=== PATIENT | male | born 1955 | race Caucasian/White ===

== ENCOUNTER 2018-09-23 20:29 | Emergency (ER) | payer BC, OTHER ==
[2018-09-23] MEDS ORDERED: KEFLEX 500 MG PO ONE (21:28)
[2018-09-23] MEDS ORDERED: NORCO 5/325 MG PO ONE (21:28)
[2018-09-23] MEDS ORDERED: Adacel Vial IM ONE ×3 (21:28→21:48)
--- NOTE | 2018-09-23 21:39 | ERPHSYRPT ---
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 tetanus not utd Timing/Duration: today Quality: painful Severity: mild Location: hands (left hand) Possible Causes: other (fish hook barbs in left hand digits 2 and 3) Associated Symptoms: denies symptoms Allergies/Adverse Reactions: oxytetracycline [From Terramycin] Allergy (Verified 12/26/14 15:42) oxytetracycline HCl [From Terramycin] Allergy (Verified 12/26/14 15:42) Home Medications: Amlodipine Besylate 5 mg [Norvasc 5 mg] 5 mg PO HS 12/26/14 [History] Lisinopril/Hctz 20/12.5 mg [Lisinopril/ Hctz 20/12.5] 20 mg PO DAILY 12/26/14 [ History] Hx Tetanus, Diphtheria Vaccination/Date Given: No Hx Influenza Vaccination/Date Given: No - Review of Systems Constitutional: No Symptoms Eyes: No Symptoms Ears, Nose, & Throat: No Symptoms Respiratory: No Symptoms Cardiac: No Symptoms Abdominal/Gastrointestinal: No Symptoms Genitourinary Symptoms: No Symptoms Musculoskeletal: No Symptoms Neurological: No Symptoms Psychological: No Symptoms Endocrine: No Symptoms Hematologic/Lymphatic: No Symptoms Immunological/Allergic: No Symptoms All Other Systems: Reviewed and Negative - Past Medical History Pertinent Past Medical History: Yes Neurological History: TIA ENT History: No Pertinent History Cardiac History: Hypertension Respiratory History: No Pertinent History Endocrine Medical History: No Pertinent History Musculoskeletal History: Fractures GI Medical History: Other Psycho-Social History: No Pertinent History Male Reproductive Disorders: No Pertinent History Other Medical History: colon blockage - Past Surgical History Past Surgical History: Yes Neuro Surgical History: No Pertinent History Cardiac: No Pertinent History Respiratory: No Pertinent History Gastrointestinal: Appendectomy Genitourinary: No Pertinent History Musculoskeletal: Orthopedic Surgery Male Surgical History: No Pertinent History Other Surgical History: LEFT WRIST - Social History Smoking Status: Current every day smoker How long have you smoked: 45 years Exposure to second hand smoke: Yes Drug Use: marijuana Patient Lives Alone: No - Nursing Vital Signs Nursing Vital Signs: Initial Vital Signs Temperature 98 F 09/23/18 21:06 Pulse Rate 84 09/23/18 21:06 Respiratory Rate 20 09/23/18 21:06 Blood Pressure 167/92 09/23/18 21:06 O2 Sat by Pulse Oximetry 98 09/23/18 21:06 Pain Scale Pain Intensity 5 - Physical Exam General Appearance: mild distress, alert, anxiety Eye Exam: PERRL/EOMI, eyes nml inspection Ears, Nose, Throat Exam: normal ENT inspection, moist mucous membranes Neck Exam: normal inspection, non-tender, supple, full range of motion Respiratory Exam: normal breath sounds, lungs clear, airway intact, No chest tenderness, No respiratory distress Gastrointestinal/Abdomen Exam: No tenderness Rectal Exam: not done Back Exam: normal inspection, normal range of motion, No CVA tenderness, No vertebral tenderness Extremity Exam: normal range of motion, pelvis stable Neurologic Exam: alert, oriented x 3, cooperative, 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 nl tendon function) Lymphatic Exam: No adenopathy SpO2 Interpretation: normal SpO2: 98 O2 Delivery: Room Air Procedures - Additional Procedures Progress: fb removal-area prepped with hibiclens and saline. area anesthetized with a total of 3ml of 1% lidocaine plain. wire cutters cut away fish hook and hooks pushed through skin. pt anny well. no complications Ordered Tests: Medication Summary Discontinued Medications Generic Name Dose Route Start Last Admin Trade Name Leo PRN Reason Stop Dose Admin Hydrocodone Bitart/Acetaminophen 1 tab 09/23/18 21:28 [place] 5/325 Mg PO 09/23/18 21:29 STAT ONE Hydrocodone Bitart/Acetaminophen Confirm 09/23/18 21:40 [place] 5/325 Mg Administered 09/23/18 21:41 Dose 1 tab .ROUTE .STK-MED ONE Cephalexin HCl 500 mg 09/23/18 21:28 Keflex 500 Mg PO 09/23/18 21:29 STAT ONE Cephalexin HCl Confirm 09/23/18 21:40 Keflex 500 Mg Administered 09/23/18 21:41 Dose 500 mg .ROUTE .STK-MED ONE Diphtheria/Tetanus/Acell Pertussis 0.5 ml 09/23/18 21:28 Adacel Vial IM 09/23/18 21:29 .ONCE ONE Diphtheria/Tetanus/Acell Pertussis Confirm 09/23/18 21:41 Adacel Vial Administered 09/23/18 21:42 Dose 0.5 ml IM .STK-MED ONE - Progress Progress: improved Counseled pt/family regarding: diagnosis, need for follow-up, rad results - Departure Departure Disposition: Home Clinical Impression: Fish hook injury of finger of left hand Condition: Stable Critical Care Time: No Referrals: ABY MARQUEZ, SECURITY SERVICES MANAGER [Primary Care Provider] - Additional Instructions: keep areas clean with soap and water. may soak in epsom salts. no ointments lotions or creams. my apply ice to area 3 times daily for pain control. follow up with primary doctor for further management. Prescriptions: Hydrocodone/APAP 5/325 [[place] 5/325 mg] 1 each PO Q8H PRN PRN #6 tablet MDD 4 PRN Reason: Pain Cephalexin Mh 500 mg [Keflex 500 mg] 500 mg PO TID #21 capsule
[2018-09-23] MEDS ORDERED: KEFLEX 500 MG ONE (21:40)
[2018-09-23] MEDS ORDERED: NORCO 5/325 MG ONE (21:40)
[2018-09-23] MEDS ORDERED: XYLOCAINE 1% HCL 20 ML MDV ONE (22:00)
[2018-09-23 22:15] VITALS: BP 178/82; PULSE 82; O2SAT 95
== END 2018-09-23 22:25 | disposition home or self-care (01) ==
LOC: ED 20:29
DX: S60.455A Superficial foreign body of left ring finger, initial encounter (principal); W45.8XXA Other foreign body or object entering through skin, initial encounter; W22.8XXA Striking against or struck by other objects, initial encounter; Y93.89 Activity, other specified
CPT/HCPCS: 90471; 90715; 99283; A9270-GY

== ENCOUNTER 2021-07-19 19:56 | Emergency (ER) | payer OTHER ==
[2021-07-19] MEDS ORDERED: MORPHINE SULFATE 4 MG INJ IV ONE ×2 (20:46→21:20)
[2021-07-19] MEDS ORDERED: Zofran 4 MG/2 ML VIAL IV ONE (20:46)
[2021-07-19 20:48] LABS: Absolute Neutrophil Ct (ANC) 5.97 (1.4-6.9); Basophil (Absolute #) 0.05 (0-0.4); Eosinophil % 2.1 % (0.00-5.0); Eosinophil (Absolute #) 0.19 (0-0.5); Hematocrit 43.5 % (42-50); Hemoglobin 14.8 gm/dl (12.5-18.0); Lymphocyte (Absolute #) 2.42 (1.0-4.6); Lymphocytes % 26.1 % (24.0-44.0); Mean Cell Volume 92.9 fl (78-100); Mean Corpuscular Hemoglobin 31.6 pg (26-32); Mean Platelet Volume 10.4 fl (7.5-11.0); Monocyte (Absolute #) 0.63 (0.0-1.3); Monocytes % 6.8 % (0.0-12.0); Neutrophil % 64.5 % (36.0-66.0); Platelet Count 259 K/mm3 (150-450); Red Blood Count 4.68 M/mm3 (4.1-5.6); Red Cell Distribution Width 13.5 % (11.5-14.0); White Blood Count 9.3 K/mm3 (4.0-10.5)
[2021-07-19] MEDS ORDERED: MORPHINE SULFATE 4 MG INJ ONE ×2 (20:50→21:25)
[2021-07-19] MEDS ORDERED: Zofran 4 MG/2 ML VIAL ONE (20:50)
[2021-07-19 20:52] LABS: INR 0.97 (0.8-3.0); PROTIME 11.5 SECONDS (9.4-12.5)
[2021-07-19 20:55] LABS: PTT 29.9 SECONDS (25.1-36.5)
--- NOTE | 2021-07-19 21:12 | ERPHSYRPT ---
- History of Present Illness Source: patient, EMS Exam Limitations: other (Pt somewhat of a poor historian and does not exactly know what hit him in head) Patient Subjective Stated Complaint: pt states "Something fell from the tree and hit me in the head." Triage Nursing Assessment: pt came into the er via ambulance; pt is axo x4; c/o laceration to head; pt states 4/10 pain to head; laceration measures 4.25 cm; moderate amount of bleeding present to laceration; laceration is located on left forehead; hypertensive Physician History: 65 yo w 4.25cm frontal scalp lac after object fell and hit him on the head. Pt denies LOC but was dazed. He denies C,T, or L-spine pain/Hip pain/chest pain/abdominal pain/N/V. He is UTD on his tetanus. Occurred: just prior to arrival Severity: moderate Head Injury Location: frontal Method of Injury: direct blow Loss of Consciousness: no loss of consciousness, dazed Associated Symptoms: No nausea, No vomiting, No abdominal pain, No shortness of breath, No heartburn, No diaphoresis, No cough, No chills, No chest pain, No fever, No headaches, No loss of appetite, No malaise, No rash, No syncope, No seizure, No weakness Allergies/Adverse Reactions: oxytetracycline [From Terramycin] Allergy (Verified 12/26/14 15:42) oxytetracycline HCl [From Terramycin] Allergy (Verified 12/26/14 15:42) Home Medications: Amlodipine Besylate 5 mg [Norvasc 5 mg] 5 mg PO HS 12/26/14 [History] Lisinopril/Hctz 20/12.5 mg [Lisinopril/ Hctz 20/12.5] 20 mg PO DAILY 12/26/14 [History] Atorvastatin Calcium [Lipitor 20MG Tablet] 20 mg PO DAILY 07/19/21 [History] Tamsulosin HCl 0.4 mg [Flomax 0.4 MG] 0.4 mg PO HS 07/19/21 [History] Hx Tetanus, Diphtheria Vaccination/Date Given: Yes (2018) Hx Influenza Vaccination/Date Given: No Travel Risk - International Travel Have you traveled outside of the country in past 3 weeks: No - Coronavirus Screening Are you exhibiting any of the following symptoms?: No Close contact with a COVID-19 positive Pt in past 14-21 Days: No - Vaccine Status Have you recieved a Covid-19 vaccination: Yes 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: [employer] - Vaccination Dates Date of 2cond Vaccination (if applicable): unknown Comment: pt states he received the booster - Review of Systems Constitutional: No Symptoms Eyes: No Symptoms Ears, Nose, & Throat: No Symptoms Respiratory: No Symptoms Cardiac: No Symptoms Abdominal/Gastrointestinal: No Symptoms Genitourinary Symptoms: No Symptoms Musculoskeletal: No Symptoms Skin: No Symptoms Neurological: No Symptoms Psychological: No Symptoms Endocrine: No Symptoms Hematologic/Lymphatic: No Symptoms Immunological/Allergic: No Symptoms - Past Medical History Pertinent Past Medical History: Yes Neurological History: TIA ENT History: No Pertinent History Cardiac History: Hypertension Respiratory History: No Pertinent History Endocrine Medical History: No Pertinent History Musculoskeletal History: Fractures GI Medical History: Other History: No Pertinent History Psycho-Social History: No Pertinent History Male Reproductive Disorders: No Pertinent History Other Medical History: colon blockage - Past Surgical History Past Surgical History: Yes Neuro Surgical History: No Pertinent History Cardiac: No Pertinent History Respiratory: No Pertinent History Gastrointestinal: Appendectomy Genitourinary: No Pertinent History Musculoskeletal: Orthopedic Surgery Male Surgical History: No Pertinent History Other Surgical History: LEFT WRIST - Social History Smoking Status: Former smoker How long have you smoked: 45 years Exposure to second hand smoke: Yes Drug Use: marijuana Patient Lives Alone: Yes Significant Family History: no pertinent family hx - Nursing Vital Signs Nursing Vital Signs: Initial Vital Signs Temperature 97.8 F 07/19/21 19:57 Pulse Rate 90 07/19/21 19:57 Respiratory Rate 18 07/19/21 19:57 Blood Pressure 167/146 07/19/21 19:57 O2 Sat by Pulse Oximetry 96 07/19/21 19:57 Pain Scale Pain Intensity 2 Hypertensive - [place] Coma Score Best Eye Response ([place]): (4) open spontaneously Best Verbal Response ([place]): (5) oriented Best Motor Response ([place]): (6) obeys commands [place] Total: 15 - Physical Exam General Appearance: no apparent distress Head Injury: lacerations (4.25cm frontal lac) Eye Exam: bilateral eye: normal inspection, PERRL, EOMI ENT Exam: airway nml, evidence of ENT injury Neck Exam: supple, trachea midline Cardiovascular/Respiratory Exam: chest non-tender, normal breath sounds, regular rate/rhythm, heart sounds normal Gastrointestinal/Abdominal Exam: soft, non tender, no distention Back Exam: normal inspection, normal range of motion, No CVA tenderness, No vertebral tenderness Extremity Exam: non-tender, normal range of motion, normal inspection, normal capillary refill Mental Status Exam: alert, oriented x 3, cooperative supervisor gate services Exam: normal hearing, normal speech, PERRL Coordination/Gait Exam: normal cerebellar function, negative Romberg's sign Motor/Sensory Exam: no motor deficit, no sensory deficit, no pronator drift, negative Babinski's sign DTR Exam: bicep (R): 2+, bicep (L): 2+ Skin Exam: normal color, warm, dry Lymphatic Exam: No adenopathy SpO2 Interpretation: normal SpO2: 96 O2 Delivery: Room Air Procedures - Laceration/Wound Repair Frontal Wound Location: head (Frontal scalp) Wound Length (cm): 4.25 Wound's Depth, Shape: into subcut Wound Explored: clean Irrigated: Yes Hibiclens Prep: Yes Anesthesia: 1% Lidocaine Volume Anesthetic (ccs): 15 Wound Repaired With: sutures (3.0Ethilon x3 to stop bleeding emergently/1 suture subsequently removed and replaced w staple), Fernie (Fernie x11) Layer Closure?: No - Course Nursing assessment & vital signs reviewed: Yes - CT Exams Head CT Interpretation: Tele-radiologist Report (No intracranial lesions or skull fx/Large L frontal scalp hematome) Ordered Tests: Active Orders 24 hr Category Date Time Status HEAD WITHOUT CONTRAST [CT] Stat Exams 07/19/21 19:58 Taken CBC W DIFF Stat Lab 07/19/21 20:45 Completed PROTIME WITH INR Stat Lab 07/19/21 20:45 Completed PTT Stat Lab 07/19/21 20:45 Completed Medication Summary Discontinued Medications Generic Name Dose Route Start Last Admin Trade Name Leo PRN Reason Stop Dose Admin Hydrocodone Bitart/Acetaminophen 2 tab 07/19/21 23:35 07/19/21 23:39 Hydrocodone/Apap 5/325 Mg Tablet PO 07/19/21 23:36 2 tab STAT ONE Administration Hydrocodone Bitart/Acetaminophen Confirm 07/19/21 23:38 Hydrocodone/Apap 5/325 Mg Tablet Administered 07/19/21 23:39 Dose 2 tab .ROUTE .STK-MED ONE Clonidine 0.2 mg 07/19/21 21:20 07/19/21 21:26 Clonidine Hcl 0.1 Mg Tablet PO 07/19/21 21:21 0.2 mg STAT ONE Administration Clonidine Confirm 07/19/21 21:25 Clonidine Hcl 0.1 Mg Tablet Administered 07/19/21 21:26 Dose 0.2 mg .ROUTE .STK-MED ONE Enalaprilat 1.25 mg 07/19/21 22:34 07/19/21 22:38 Enalaprilat 2.5 Mg Injection IV 07/19/21 22:35 1.25 mg STAT ONE Administration Enalaprilat Confirm 07/19/21 22:37 Enalaprilat 2.5 Mg Injection Administered 07/19/21 22:38 Dose 2.5 mg IV .STK-MED ONE Lidocaine HCl 15 ml 07/19/21 23:35 07/19/21 23:39 Lidocaine Hcl 1% 20 Ml Mdv 20 Ml Ml IJ 07/19/21 23:36 15 ml STAT ONE Administration Morphine Sulfate 4 mg 07/19/21 20:46 07/19/21 20:52 Morphine Sulfate 4 Mg/Ml Injection IV 07/19/21 20:47 4 mg STAT ONE Administration Morphine Sulfate Confirm 07/19/21 20:50 Morphine Sulfate 4 Mg/Ml Injection Administered 07/19/21 20:51 Dose 4 mg .ROUTE .STK-MED ONE Morphine Sulfate 4 mg 07/19/21 21:20 07/19/21 21:26 Morphine Sulfate 4 Mg/Ml Injection IV 07/19/21 21:21 4 mg STAT ONE Administration Morphine Sulfate Confirm 07/19/21 21:25 Morphine Sulfate 4 Mg/Ml Injection Administered 07/19/21 21:26 Dose 4 mg .ROUTE .STK-MED ONE Ondansetron HCl 4 mg 07/19/21 20:46 07/19/21 20:52 Ondansetron Hcl 4 Mg/2 Ml Vial IV 07/19/21 20:47 4 mg STAT ONE Administration Ondansetron HCl Confirm 07/19/21 20:50 Ondansetron Hcl 4 Mg/2 Ml Vial Administered 07/19/21 20:51 Dose 4 mg .ROUTE .STK-MED ONE Lab/Rad Data: Laboratory Result Diagrams 07/19/21 20:45 Laboratory Results 07/19/21 07/19/21 Range/Units 20:45 20:45 WBC 9.3 (4.0-10.5) K/mm3 RBC 4.68 (4.1-5.6) M/mm3 Hgb 14.8 (12.5-18.0) gm/dl Hct 43.5 (42-50) % MCV 92.9 (78-100) fl MCH 31.6 (26-32) pg MCHC 34.0 (32-36) g/dl RDW 13.5 (11.5-14.0) % Plt Count 259 (150-450) K/mm3 MPV 10.4 (7.5-11.0) fl Gran % 64.5 (36.0-66.0) % Eos # (Auto) 0.19 (0-0.5) Absolute Lymphs (auto) 2.42 (1.0-4.6) Absolute Monos (auto) 0.63 (0.0-1.3) Lymphocytes % 26.1 (24.0-44.0) % Monocytes % 6.8 (0.0-12.0) % Eosinophils % 2.1 (0.00-5.0) % Basophils % 0.5 (0.0-0.4) % Absolute Granulocytes 5.97 (1.4-6.9) Basophils # 0.05 (0-0.4) PT 11.5 (9.4-12.5) SECONDS INR 0.97 (0.8-3.0) APTT 29.9 (25.1-36.5) SECONDS - Progress Progress: improved Progress Note: 07/19/21 21:18 4mg IV Morphine/4mg IV Zofran w improvement in pain 4mg IV Morphine 0.2 po clonidine 07/19/21 21:21 Pt up to date w Tdap 07/19/21 23:25 1.25 IV Vasotec given which lowered BP, pt told to take BP meds at home Counseled pt/family regarding: diagnosis, need for follow-up, rad results - Departure Clinical Impression: Laceration of scalp, Minor head injury, Uncontrolled hypertension Condition: Stable Critical Care Time: No Referrals: ARVIN AYALA FNP [Primary Care Provider] - Follow up/PCP as directed Instructions: Wound Care (DC), Laceration Repair With Fernie (DC), Laceration Repair With Stitches (DC) Additional Instructions: Keep laceration dry for 3 days, then wash 1-2 times a day w mild soap/water Fernie/Sutures out in 10 days Watch for signs of infection-redness/increasing pain/pus/temperature greater than 100.5 Follow up with your family MD about blood pressure Continue to take your blood pressure meds
[2021-07-19] MEDS ORDERED: CLONIDINE 0.1 MG TABLET PO ONE (21:20)
[2021-07-19] MEDS ORDERED: CLONIDINE 0.1 MG TABLET ONE (21:25)
[2021-07-19] MEDS ORDERED: ENALAPRILAT 2.5 MG INJECTION IV ONE ×2 (22:34→22:37)
[2021-07-19 23:33] VITALS: BP 174/104; PULSE 71
[2021-07-19 23:35] VITALS: O2SAT 96
[2021-07-19] MEDS ORDERED: NORCO 5/325 MG PO ONE (23:35)
[2021-07-19] MEDS ORDERED: XYLOCAINE 1% HCL 20 ML MDV IJ ONE (23:35)
[2021-07-19] MEDS ORDERED: NORCO 5/325 MG ONE (23:38)
--- NOTE | 2021-07-20 07:37 | XRAY ---
Indication: Left head laceration following injury. Multiple contiguous axial images obtained through the head without contrast. Comparison: December 26, 2014. Age-appropriate global atrophy with new mild periventricular degenerative micro-ischemia bilaterally. Also new finding for remote left occipital lobe and small 1 cm left mid periventricular infarcts. No acute intracranial hemorrhage, abnormal extra-axial fluid collection, or mass effect. Fourth ventricle is midline without hydrocephalus. New large left frontal scalp hematoma. Bony calvarium intact. Mild mucosal thickening left maxillary sinus. Remaining visualized paranasal sinuses and mastoid air cells are clear. Impression: 1. Large left frontal scalp hematoma. No underlying fracture or acute intracranial abnormalities. 2. Atrophy and degenerative micro-ischemia within normal limits for patient's age. 3. 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 4. Incidental left maxillary sinus disease. Comment: Preliminary interpretation made by C. No critical discrepancy.
== END 2021-07-19 23:49 | disposition home or self-care (01) ==
LOC: ED 19:56
DX: S01.81XA Laceration without foreign body of other part of head, initial encounter (principal); S09.90XA Unspecified injury of head, initial encounter; W22.8XXA Striking against or struck by other objects, initial encounter; I10 Essential (primary) hypertension; Z79.899 Other long term (current) drug therapy
CPT/HCPCS: 12002; 36415; 70450; 85025; 85610; 85730; 96372; 96374; 96375; 96376; 99284; J2270; J2405; A9270-GY

== ENCOUNTER 2023-11-02 18:28 | Emergency (ER) | payer MEDICARE, OTHER | END 2023-11-02 20:10 | disposition left against medical advice (07) | LOC: ED 18:28 | DX: Z53.21 Procedure and treatment not carried out due to patient leaving prior to being seen by health care provider (principal) ==

== ENCOUNTER 2023-11-02 22:39 | Emergency (ER) | payer MEDICARE ==
[2023-11-03 00:36] VITALS: TEMP 97
[2023-11-03 01:12] VITALS: BP 228/131; PULSE 88; RESP 16
[2023-11-03] MEDS ORDERED: KEFLEX 500 MG ONE (01:13)
[2023-11-03] MEDS ORDERED: CLONIDINE 0.1 MG TABLET ONE (01:13)
[2023-11-03] MEDS: KEFLEX 500 MG PO ONE (01:14)
[2023-11-03] MEDS: CLONIDINE 0.1 MG TABLET PO ONE (01:14)
[2023-11-03 01:15] VITALS: O2SAT 97
--- NOTE | 2023-11-03 01:15 | ERPHSYRPT ---
- History of Present Illness Time Seen by Provider: 11/03/23 00:55 Source: patient Exam Limitations: no limitations Patient Subjective Stated Complaint: fish hook to L wrist/hand Triage Nursing Assessment: pt ambulatory to bed by self with family at bedside, pt alert and oriented x3, pt presents with fishhook to L wrist/hand, tetanus is utd, no bleeding noted. pt hypertensive but per pt and pt's son that is normal for him. pt is supposed to be on home medications for htn but has stopped taking them for months. Timing/Duration: today, improved Associated Symptoms: other (Hand pain) Allergies/Adverse Reactions: oxytetracycline [From Terramycin] Allergy (Verified 11/03/23 00:28) oxytetracycline HCl [From Terramycin] Allergy (Verified 11/03/23 00:28) Hx Tetanus, Diphtheria Vaccination/Date Given: Yes Hx Influenza Vaccination/Date Given: No Hx Pneumococcal Vaccination/Date Given: No Immunizations Up to Date: No Travel Risk - International Travel Have you traveled outside of the country in past 3 weeks: No - Emerging Infectious Disease Are you exhibiting symptoms associated with any current EIDs: No - Review of Systems Eyes: No Symptoms Ears, Nose, & Throat: No Symptoms Respiratory: No Symptoms Cardiac: No Symptoms Abdominal/Gastrointestinal: No Symptoms Genitourinary Symptoms: No Symptoms Musculoskeletal: No Symptoms - Past Medical History Pertinent Past Medical History: Yes Neurological History: No Pertinent History, TIA ENT History: No Pertinent History Cardiac History: No Pertinent History, Hypertension Respiratory History: No Pertinent History Endocrine Medical History: No Pertinent History Musculoskeletal History: Fractures GI Medical History: Other History: No Pertinent History Psycho-Social History: No Pertinent History Male Reproductive Disorders: No Pertinent History Other Medical History: colon blockage - Past Surgical History Past Surgical History: Yes Neuro Surgical History: No Pertinent History Cardiac: No Pertinent History Respiratory: No Pertinent History Gastrointestinal: Appendectomy, Colon Resection Genitourinary: No Pertinent History Musculoskeletal: Orthopedic Surgery Male Surgical History: No Pertinent History Other Surgical History: LEFT WRIST Significant Family History: no pertinent family hx - Social History Smoking Status: Former smoker How long have you smoked: 45 years Exposure to second hand smoke: Yes Drug Use: marijuana Patient Lives Alone: Yes - Social Determinants of Health Will the patient participate in the screening: Declined to provide - Nursing Vital Signs Nursing Vital Signs: Initial Vital Signs Temperature 97.0 F 11/03/23 00:29 Pulse Rate 84 11/03/23 00:29 Respiratory Rate 18 11/03/23 00:29 Blood Pressure 237/150 11/03/23 00:29 O2 Sat by Pulse Oximetry 97 11/03/23 00:29 Pain Scale Pain Intensity 5 - Physical Exam General Appearance: no apparent distress Eye Exam: PERRL/EOMI Ears, Nose, Throat Exam: normal ENT inspection Neck Exam: normal inspection Respiratory Exam: normal breath sounds Cardiovascular Exam: regular rate/rhythm Gastrointestinal/Abdomen Exam: soft Extremity Exam: other (Inspection of the left hand reveals a fishhook stuck in the base of the hypothenar eminence, patient was given local anesthesia, fishhook was removed with traction countertraction technique, no further bleeding was noted) SpO2: 97 Ordered Tests: Medication Summary Discontinued Medications Generic Name Dose Route Start Last Admin Trade Name Jonathanq PRN Reason Stop Dose Admin Clonidine 0.2 mg 11/03/23 01:08 Clonidine Hcl 0.1 Mg Tablet PO 11/03/23 01:09 STAT ONE - Progress Progress Note: Patient was seen and evaluated for fishhook removal this was removed by traction and countertraction maneuver. No further bleeding was noted. Was given wound care precautions. Informed of the need to follow-up with his primary care provider and hand surgery. He will be given Keflex here in the department and clonidine as his blood pressure is elevated. He was informed of the need of to take his medications as prescribed monitor his blood pressure. Of heart attack and stroke explained all risk of noncompliance including risk of expla ined. I informed the patient of the need to monitor his blood pressure here he states he wished to go home and will follow-up with his doctor 11/03/23 01:11 11/03/23 01:14 Medical Desision Making - Discussion of managment Agreed on:: need for follow-up Will see patient: In office - Departure Clinical Impression: Foreign body of left hand, Fish hook injury of finger of left hand, Uncontrolled hypertension Condition: Stable Critical Care Time: No Referrals: ARVIN AYALA FNP [Primary Care Provider] - Follow up/PCP as directed Instructions: Removal of Foreign Body in Skin Additional Instructions: Please monitor your blood pressure Prescriptions: Cephalexin Mh 500 mg [Keflex 500 mg] 500 mg PO TID 8 Days #24 cap
== END 2023-11-03 01:28 | disposition home or self-care (01) ==
LOC: ED 22:39
DX: S61.442A Puncture wound with foreign body of left hand, initial encounter (principal); W26.8XXA Contact with other sharp object(s), not elsewhere classified, initial encounter; W45.8XXA Other foreign body or object entering through skin, initial encounter; I10 Essential (primary) hypertension; Z79.899 Other long term (current) drug therapy
CPT/HCPCS: 99282; A9270-GY